=== PATIENT | female | born 1965 | race Caucasian/White ===

== ENCOUNTER → 2017-05-31 | Outpatient (CLI) | payer BC ==
[~2017-05-31] MED LIST: CETI10TA84 PO; CHOL100010 PO; IBUP-1050 PO; LEVO125T4 PO
[2017-05-31 17:10] LABS: THYROID STIMULATING HORMONE 0.743 uIu/ml (0.300-4.500)
== END | disposition home or self-care (01) ==
LOC: C.LAB1850 15:06
PROVIDERS: ATTEND Internal Medicine Endocrinology, Diabetes & Metabolism
DX: E03.9 Hypothyroidism, unspecified (principal); M79.1 Myalgia

== ENCOUNTER → 2017-06-02 | Outpatient (CLI) | payer BC ==
--- NOTE | 2017-06-02 12:44 | DIAGNOSTIC IMAGING REPORT ---
THYROID ULTRASOUND CLINICAL HISTORY: 51-year-old female with hypothyroidism, Neftali's thyroiditis. COMPARISON: None. FINDINGS: Right lobe: Hypoechoic right lobe with a coarsened echotexture. The right lobe measures 3.8 x 1.0 x 1.5 cm. Normal color Doppler flow. No nodules. Left lobe: Hypoechoic left lobe with a coarsened echotexture. The left lobe measures 2.8 x 1.3 x 0.7 cm. Normal color Doppler flow. No nodules. Isthmus: Similar appearance as the right left lobes. No significant thickening. The isthmus measures 1 mm in thickness. No nodules. IMPRESSION: Heterogeneous thyroid parenchyma consistent with the given history of Neftali's thyroiditis. No discrete thyroid nodules. Electronically signed by: Chito Matamoros M.D. 06/02/2017 12:43 PM Dictated Date/Time: 06/02/2017 12:37 PM
== END | disposition home or self-care (01) ==
LOC: C.ULTR 12:05
PROVIDERS: ATTEND Internal Medicine Endocrinology, Diabetes & Metabolism
DX: E03.9 Hypothyroidism, unspecified (principal); E06.3 Autoimmune thyroiditis

== ENCOUNTER → 2017-08-15 | Outpatient (CLI) | payer BC ==
--- NOTE | 2017-08-15 14:41 | MAMMOGRAPHY REPORT ---
BILATERAL DIGITAL SCREENING MAMMOGRAM TOMOSYNTHESIS WITH CAD: 08/15/2017 CLINICAL HISTORY: Routine screening. Patient has no complaints. TECHNIQUE: Breast tomosynthesis in addition to standard 2D mammography was performed. Current study was also evaluated with a Computer Aided Detection (CAD) system. COMPARISON: Comparison is made to exams dated: 08/11/2016 mammogram, 07/03/2015 mammogram, 07/02/2014 m ammogram, 06/19/2013 mammogram, 06/12/2012 mammogram, and 05/25/2011 mammogram - [facility] nter. BREAST COMPOSITION: The tissue of both breasts is heterogeneously dense, which may obscure small mas ses. FINDINGS: There is an asymmetry in the retroglandular fat of the posterior right breast, along the p osterior nipple line on the MLO view. Although this could represent normal fibroglandular tissue, it was not definitely seen on prior mammograms, which could be positional. Nevertheless, additional sp ot compression tomosynthesis views and possible ultrasound are recommended. There are a few benign-appearing calcifications in the breasts. No other suspicious mass, architectur al distortion or cluster of microcalcifications is seen. IMPRESSION: ACR BI-RADS CATEGORY 0: INCOMPLETE EVALUATION: NEED ADDITIONAL IMAGING EVALUATION The asymmetry in the posterior right breast needs additional evaluation. The patient will be called to schedule an appointment. Approximately 10% of breast cancers are not detected with mammography. A negative mammographic report should not delay biopsy if a clinically suggestive mass is present. Trina Richards M.D. ay/:08/15/2017 08:46:19 Finishing Room Operator: Nat PERSON)(Lorri), [facility] letter sent: Addl Imaging 0 BI-RADS Code: ACR BI-RADS Category 0: Incomplete Evaluation: Need Additional Imaging Evaluation
== END | disposition home or self-care (01) ==
LOC: C.MAMM 07:24
PROVIDERS: ATTEND Obstetrics & Gynecology
DX: Z12.31 Encounter for screening mammogram for malignant neoplasm of breast (principal); N64.89 Other specified disorders of breast

== ENCOUNTER → 2017-08-21 | Outpatient (CLI) | payer BC ==
--- NOTE | 2017-08-21 12:36 | MAMMOGRAPHY REPORT ---
UNILATERAL RIGHT DIGITAL DIAGNOSTIC MAMMOGRAM TOMOSYNTHESIS AND TARGETED RIGHT ULTRASOUND: 08/21/2017 CLINICAL HISTORY: Callback from screening mammography for an asymmetry in the retroglandular fat of t he right breast, along the posterior nipple line on the MLO view. TECHNIQUE: Right CC and MLO 2-D and tomosynthesis images were obtained. COMPARISON: Comparison is made to exams dated: 08/15/2017 mammogram, 08/11/2016 mammogram, 07/03/2015 m ammogram, 07/02/2014 mammogram, 06/19/2013 mammogram, and 06/12/2012 mammogram - [facility] enter. BREAST COMPOSITION: The tissue of the right breast is heterogeneously dense, which may obscure small masses. FINDINGS: There is near complete effacement of the 7 mm nodular asymmetry in the retroglandular fat o f the right breast on all additional supplemental mammographic and tomosynthesis images. No focal ar ea of architectural distortion, persistent asymmetry or suspicious calcifications are identified. Targeted ultrasound was performed in the right breast 2:00 to 4:00, retroareolar and 8:00 to 10:00 ax es. Scattered benign cysts and cyst clusters are seen, without evidence of a suspicious solid or cys tic mass. IMPRESSION: ACR-BI-RADS CATEGORY 3: PROBABLY BENIGN, TARGETED ULTRASOUND ACR-BI-RADS CATEGORY 3: PRO BABLY BENIGN There is near complete effacement of the 7 mm asymmetry in the retroglandular fat of the right breast on all supplemental mammographic and tomosynthesis images. No suspicious sonographic correlate was identified, only scattered benign cysts. However, a short interval follow-up right diagnostic tomosy nthesis mammogram and possible repeat ultrasound is recommended to ensure stability in 6 months. The se results and recommendations were discussed with the patient at the time of the exam. Approximately 10% of breast cancers are not detected with mammography. A negative mammographic report should not delay biopsy if a clinically suggestive mass is present. Trina Richards M.D. ay/:08/21/2017 08:48:10 Supervisor Microwave: Clayton LANDIS(Cindy)(Lorri), [facility] letter sent: Follow Up Recommended 3 BI-RADS Code: ACR-BI-RADS Category 3: Probably Benign Ultrasound BI-RADS: ACR-BI-RADS Category 3: Pr obably Benign
== END | disposition home or self-care (01) ==
LOC: C.MAMM 08:09
PROVIDERS: ATTEND Obstetrics & Gynecology
DX: N64.89 Other specified disorders of breast (principal); N60.01 Solitary cyst of right breast

== ENCOUNTER → 2018-02-21 | Outpatient (CLI) | payer OTHER ==
[~2018-02-21] MED LIST changes: -LEVO125T4 PO; +LEVO125T5 PO
--- NOTE | 2018-02-21 15:21 | MAMMOGRAPHY REPORT ---
UNILATERAL RIGHT DIGITAL DIAGNOSTIC MAMMOGRAM TOMOSYNTHESIS WITH CAD: 02/21/2018 CLINICAL HISTORY: Short interval follow-up of right breast asymmetry. TECHNIQUE: Breast tomosynthesis in addition to standard 2D mammography was performed. Current study was also evaluated with a Computer Aided Detection (CAD) system. Right CC and MLO 2D and tomosynthes is images were obtained. COMPARISON: Comparison is made to exams dated: 08/21/2017 ultrasound, 08/21/2017 mammogram, 08/15/2017 mammogram, 08/11/2016 mammogram, 07/03/2015 mammogram, and 07/02/2014 mammogram - [facility]. BREAST COMPOSITION: The tissue of the right breast is heterogeneously dense, which may obscure small masses. FINDINGS: The previously described asymmetry seen within the retroglandular fat of the right breast o n the MLO view is less prominent on the current exam, and has the appearance of normal fibroglandular tissue on the tomosynthesis images. The asymmetry is benign and compatible with normal fibroglandul ar tissue. The remainder of the right breast is stable mammographically compared to prior exams, wit hout suspicious masses, calcifications, or areas of architectural distortion noted. Scattered benign -appearing calcifications are not significantly changed. IMPRESSION: ACR BI-RADS CATEGORY 2: BENIGN The right breast asymmetry is less prominent on the current exam, and is benign and compatible with n ormal fibroglandular tissue. There is no mammographic evidence of malignancy. Return to annual mammo gram screening schedule is recommended, due July 2018. The patient has been verbally notified of the results. Approximately 10% of breast cancers are not detected with mammography. A negative mammographic report should not delay biopsy if a clinically suggestive mass is present. Marianne Castro M.D. /:02/21/2018 08:19:10 Card Grader: Nat PERSON)(Lorri), [facility] letter sent: Normal 1/2 BI-RADS Code: ACR BI-RADS Category 2: Benign
== END | disposition home or self-care (01) ==
LOC: C.MAMM 08:01
PROVIDERS: ATTEND Obstetrics & Gynecology
DX: N64.9 Disorder of breast, unspecified (principal)